=== PATIENT | female | born 1965 | race Caucasian/White ===

== ENCOUNTER 2016-12-04 15:05 | Inpatient (IN) | payer MEDICARE ==
[~2016-12-04] VITALS: Ht 170.1 cm; Wt 82.1 kg
--- NOTE | ~2016-12-04 | CON ---
[place], [place] REPORT OF CONSULTATION NAME: ISIDORO HOUSE [facility] #: [id number] UNIT #: [id number] ROOM: 412 DOCTOR: MAVIS PARADA MD BIRTHDATE: [birth year] DOS: 12/05/2016 CARDIOLOGY CONSULT REASON FOR CONSULTATION: Chest pain. HISTORY OF PRESENT ILLNESS: The patient is a 51-year-old patient with history of coronary artery disease, hypertension, dyslipidemia, tobacco use, came to the Emergency Room for chest pain. Apparently, she went to see her dentist and her blood pressure was high at that time, but then she was noted to have some chest pain at rest, substernal area, more like dull and heaviness and she was advised to go to the Emergency Room and then she was admitted into the hospital and Cardiology consult for further recommendations. She described this as a constant pressure-like sensation again at rest. No radiation, no associated nausea, diaphoresis, or shortness of breath. Sometimes, the pain did radiate to the left arm and when she smokes cigarettes, the pain got worse. She also has had nausea last night. She had a "cardiac cath" about 5 years ago and was told she has 1 blockage, details unknown. Apparently this was done in the [facility] and she has not seen a manager information in the last several years. No fever or chills. No cough, no hemoptysis. No vomiting, diarrhea, no blurred vision or double vision, no tingling, numbness or weakness. No headaches. REVIEW OF SYSTEMS: Review of the 8 systems negative except as mentioned above. PAST MEDICAL HISTORY: 1. Hypertension. 2. "Coronary artery disease with catheterization about 5 years ago". 3. COPD. 4. Diverticulosis. 5. Acid reflux. 6. Dyslipidemia. 7. Migraine headaches. 8. Hypothyroidism. PAST SURGICAL HISTORY: Back surgery, bladder repair, cardiac catheterization, history of hysterectomy and tonsillectomy. SOCIAL HISTORY: The patient currently smokes, but does not use illicit drugs, but she does drink alcohol. FAMILY HISTORY: Father had leukemia and coronary artery disease, . Mother has diabetes. Brother has a defibrillator at the age of 21. ALLERGIES: The patient is allergic to LEVAQUIN, PAXIL, HYDROCODONE, and IBUPROFEN. HOME MEDICATIONS: Reviewed. PHYSICAL EXAMINATION: VITAL SIGNS: Blood pressure 110/62, pulse of 50, respiratory rate was 16. [place], [place] REPORT OF CONSULTATION [id number] UNIT #: [id number] ROOM: 412 DOCTOR: KARMA OLIVA,MAVIS BIRTHDATE: [birth year] GENERAL: Alert, comfortable, in no acute distress. HEENT: Pupils are round and equal. No jaundice. Tongue was moist and pharynx was clear. NECK: Supple, no distended neck veins, no carotid bruit. LUNGS: Clear to auscultation bilaterally. HEART: Regular rhythm, no S3, no palpable thrills. ABDOMEN: Bowel sounds normal. EXTREMITIES: Showed no edema. Distal pulses are palpable. SKIN: Warm and dry. No cyanosis, no clubbing. NEUROLOGIC: The patient is alert, oriented. No focal neurologic deficit. RECTAL: Deferred. GENITOURINARY: Deferred. REVIEW OF THE DIAGNOSTIC TESTS: A 12-lead EKG was not . Rhythm strip showed sinus rhythm. Her labs including CBC, chemistry and cardiac enzymes reviewed. IMPRESSION: 1. Chest pain, atypical, myocardial infarction ruled out. 2. Sinus bradycardia, asymptomatic. Avoid any AV blocking medications. 3. Her thyroid function tests were normal. 4. Tobacco smoking. 5. Hypertension. 6. History of coronary artery disease per patient, details unknown. RECOMMENDATIONS: Chest pain appears to be atypical and her cardiac enzymes unremarkable, so she declined stress test today. Cardiology will sign off and we will follow her as an outpatient. She was advised to follow up with her manager information in the [facility] and then we will consider outpatient stress test. Continue current medications and avoid any AV blocking medications due to her mild sinus bradycardia. I would recommend outpatient event monitor for 1-2 weeks to asses her bradycardia at home. MAVIS PARADA MD CM:CONSTR:REPORT OF CONSULTATION 1127 12/05/16 [id number] interface
[~2016-12-04 15:05] MED LIST: ACETAMINOPHEN-H1 TA2 PO; ADVAIR 100/501 E1 INH; AMOXICILLIN500 MG PO; ASCRIPTIN ENTER81 MG PO; ASPIRIN ADULT L81 MG PO; ASPIRIN81 M1 PO; ATENOLOL25 MG PO; ATIVAN1 MG PO; Albuterol Sulfat3 ML IH; BUPROPION HYDR150 M1 PO; CALCIUM 600600 MG PO; COREG12.5 MG PO; COREG25 MG PO; COREG6.25 MG PO; DIFLUCAN150 MG PO; DOXYCYCLINE100 M3 PO; DUONEB 3 MG/3 ML3 M1 INH; FEROSUL325 MG PO; FERROUS SULFATE65 MG PO; HYDROCHLOROTHIA25 MG PO; HYDROCODONE BIT1 T11 PO; INSPRA25 MG PO; IRBESARTAN150 MG PO; LATU40TA PO; LISINOPRIL20 MG PO; MEDROL DOSEPAK4 MG PO; MOTRIN800 MG PO; MULTIPLE VITAMI1 CAP PO; MULTIPLE VITAMI1 TAB PO; NAPROSYN250 MG PO; NAPROSYN500 MG PO; PAXIL10 MG; PERCOCET 325 MG1 TA2 PO; PREDNICOT20 MG PO; PRILOSEC20 M1 PO; PROTONIX40 MG PO; PULMICORT RESP0.5 MG INH; RESTORIL30 MG PO; Synthroid,Levo50 MCG PO; TESSALON PERLE200 MG PO; TOPAMAX25 M3 PO; VENTOLIN H0.09 MG/AC INH; VISTARIL50 MG PO; VITAMIN C; VITAMIN C500 M4 PO; Wellbutrin Xl150 MG PO; ZANTAC 150150 MG PO; ZANTAC150 MG PO; ZITHROMAX Z-PA250 MG PO; ZOCOR10 MG PO; ZOFRAN ODT4 MG SL; ZOLOFT100 MG PO; ZOLOFT50 MG PO; ZYRTEC10 MG PO; Zofran4 MG PO
[2016-12-04 15:19] VITALS: BP 168/80
[2016-12-04 16:02] LABS: BASO # 0.1 10*3/uL (0.0-0.1); BASO % 0.9 % (0.0-1.0); EOS # 0.4 10*3/uL (0.0-0.4); EOS % 4.9 % (1.0-4.0); HEMATOCRIT 36.5 % (37.0-47.0); HEMOGLOBIN 11.9 g/dl (12.0-16.0); LYMPH # 2.8 10*3/uL (1.3-4.4); LYMPH % 36.5 % (27.0-41.0); MEAN CELL VOLUME 88.8 fl (81.0-99.0); MEAN CORPUSCULAR HGB CONC 32.6 g/dl (33.0-37.0); MEAN PLATELET VOLUME 9.7 fl (9.6-12.3); MONO # 0.4 10*3/uL (0.1-1.0); MONO % 5.4 % (3.0-9.0); PLATELET COUNT AUTOMATED 308 10*3/uL (130-400); RED BLOOD COUNT 4.11 10*6/uL (4.10-5.10); RED CELL DISTRI WIDTH 12.7 % (0-14.5); WHITE BLOOD COUNT 7.7 10*3/uL (4.8-10.8)
[2016-12-04 16:19] LABS: BUN 12 mg/dl (7-24); CARBON DIOXIDE 22 mmol/L (21-32); CHLORIDE 110 mmol/L (98-107); EST GLOM FILT AFRICAN AMERICAN > 60 ml/min; GLUCOSE 86 mg/dL (65-99); POTASSIUM 3.9 mmol/L (3.5-5.1); SODIUM 142 mmol/L (136-145)
[2016-12-04 16:20] LABS: TROPONIN I < 0.015 ng/ml (<0.045)
[2016-12-04 16:46] VITALS: BP 156/97
[2016-12-04 18:49] VITALS: BP 137/82
[2016-12-04 20:00] VITALS: BP 129/77
[2016-12-04] MEDS ORDERED: BUDEPRION XL150 MG PO (22:23)
[2016-12-05] VITALS: BP 98/72
[2016-12-05 00:56] LABS: CPK 38 U/L (26-192)
[2016-12-05 00:57] LABS: CKMB < 0.5 ng/ml (0.5-3.6); TROPONIN I < 0.015 ng/ml (<0.045)
[2016-12-05 01:45] VITALS: BP 106/69
[2016-12-05 06:20] LABS: BASO # 0.1 10*3/uL (0.0-0.1); BASO % 0.7 % (0.0-1.0); EOS # 0.4 10*3/uL (0.0-0.4); EOS % 5.5 % (1.0-4.0); HEMATOCRIT 33.4 % (37.0-47.0); HEMOGLOBIN 10.7 g/dl (12.0-16.0); LYMPH # 3.3 10*3/uL (1.3-4.4); MEAN CELL VOLUME 89.8 fl (81.0-99.0); MEAN CORPUSCULAR HGB 28.8 pg (27.0-31.0); MEAN PLATELET VOLUME 9.8 fl (9.6-12.3); MONO # 0.5 10*3/uL (0.1-1.0); MONO % 7.4 % (3.0-9.0); NEUT # 2.6 10*3/uL (2.3-7.9); NEUT % 38.1 % (47.0-73.0); PLATELET COUNT AUTOMATED 280 10*3/uL (130-400); RED BLOOD COUNT 3.72 10*6/uL (4.10-5.10); RED CELL DISTRI WIDTH 12.7 % (0-14.5); WHITE BLOOD COUNT 6.9 10*3/uL (4.8-10.8)
[2016-12-05 06:31] LABS: CPK 43 U/L (26-192)
[2016-12-05 06:35] LABS: CKMB < 0.5 ng/ml (0.5-3.6); TROPONIN I < 0.015 ng/ml (<0.045)
[2016-12-05 06:57] LABS: ALBUMIN 3.2 gm/dl (3.1-4.5); ALKALINE PHOSPHATASE 73 U/L (45-117); BILIRUBIN, TOTAL 0.2 mg/dl (0.2-1.0); BUN 13 mg/dl (7-24); CARBON DIOXIDE 25 mmol/L (21-32); CHLORIDE 110 mmol/L (98-107); CHOLESTEROL 146 mg/dL (<200); EST GLOM FILT AFRICAN AMERICAN > 60 ml/min; FREE T4 1.03 ng/dl (0.76-1.46); GLUCOSE 88 mg/dL (65-99); HDL CHOLESTEROL 46 mg/dl (40-60); LDL CHOLESTEROL 78 mg/dL (9-159); MAGNESIUM 2.2 mg/dL (1.5-2.1); POTASSIUM 3.9 mmol/L (3.5-5.1); SGOT/AST 10 IU/L (3-35); SGPT/ALT 13 U/L (12-78); SODIUM 144 mmol/L (136-145); TOTAL PROTEIN 6.2 gm/dL (6.4-8.2); TRIGLYCERIDES 111 mg/dl (<150); VLDL CHOLESTEROL 22 mg/dL (6-40)
[2016-12-05 07:02] LABS: THYROID STIM HORMONE (HS) 0.992 uIU/ml (0.358-4.75)
[2016-12-05 07:04] LABS: PROTHROMBIN TIME 10.5 SECONDS (9.0-12.4)
[2016-12-05 07:06] LABS: FOLIC ACID 5.57 ng/mL (>5.38); VITAMIN D, 25-HYDROXY 20.2 ng/mL (30-100)
[2016-12-05 08:00] VITALS: BP 110/62; BP 80/62
[2016-12-05 12:00] VITALS: BP 117/61
[2016-12-05 12:14] LABS: CKMB 0.7 ng/ml (0.5-3.6)
[2016-12-05 12:27] LABS: CPK 70 U/L (26-192); TROPONIN I < 0.015 ng/ml (<0.045)
== END 2016-12-05 13:23 | disposition home or self-care (01) | DRG 392 ==
LOC: ED 15:05 → EDHOLD 16:59 → 4E 16:59
PROVIDERS: Emergency Medicine; Hospitalist
DX: K21.9 Gastro-esophageal reflux disease without esophagitis (principal); I10 Essential (primary) hypertension; I25.10 Atherosclerotic heart disease of native coronary artery without angina pectoris; J45.909 Unspecified asthma, uncomplicated; F32.9 Major depressive disorder, single episode, unspecified; J44.9 Chronic obstructive pulmonary disease, unspecified; R00.1 Bradycardia, unspecified; G43.909 Migraine, unspecified, not intractable, without status migrainosus; E78.5 Hyperlipidemia, unspecified; E03.9 Hypothyroidism, unspecified; F41.0 Panic disorder [episodic paroxysmal anxiety]; Z87.81 Personal history of (healed) traumatic fracture; Z86.73 Personal history of transient ischemic attack (TIA), and cerebral infarction without residual deficits; Z98.51 Tubal ligation status; Z90.710 Acquired absence of both cervix and uterus; Z88.1 Allergy status to other antibiotic agents; Z88.6 Allergy status to analgesic agent; Z88.8 Allergy status to other drugs, medicaments and biological substances; Z79.82 Long term (current) use of aspirin; Z79.899 Other long term (current) drug therapy; Z82.49 Family history of ischemic heart disease and other diseases of the circulatory system; Z80.6 Family history of leukemia; Z83.3 Family history of diabetes mellitus

== ENCOUNTER → 2018-03-09 | Outpatient (CLI) | payer MEDICARE ==
[~2018-03-09] MED LIST changes: +BUDEPRION XL150 MG PO
== END ==
LOC: US 16:41
DX: R22.1 Localized swelling, mass and lump, neck (principal); R68.84 Jaw pain

== ENCOUNTER → 2018-03-31 | Outpatient (CLI) | payer MEDICARE | END | disposition home or self-care (01) | LOC: RAD 15:18 | DX: J44.9 Chronic obstructive pulmonary disease, unspecified (principal); E03.9 Hypothyroidism, unspecified; I10 Essential (primary) hypertension ==